=== PATIENT | female | born 1995 | race African-American/Black ===

== ENCOUNTER 2025-01-06 22:00 | Emergency (ER) | payer OTHER ==
[2025-01-06 22:15] VITALS: BP 106/52; PULSE 88; RESP 20; TEMP 98.2; BMI 19.1
[2025-01-06 22:46] LABS: HCG,QUALITATIVE URINE Positive
[2025-01-06 22:48] LABS: EPI CELLS 6 /uL (0-25.1); HYALINE CASTS 1 /uL (0-3.1); PH,URINE 7.5 (5.0-8.0); URINE APPEARANCE TURBID; URINE BACTERIA 324 /uL (0-1359); URINE BILIRUBIN NEGATIVE (NEGATIVE); URINE COLOR ORANGE; URINE GLUCOSE (UA) NEGATIVE (NEGATIVE); URINE KETONE NEGATIVE (NEGATIVE); URINE LEUK ESTERASE 3+ (NEGATIVE); URINE NITRITE NEGATIVE (NEGATIVE); URINE PROTEIN 2+ (NEGATIVE); URINE RBC 5564 /uL (0-23.9); URINE WBC 8654 /uL (0-25.8)
[2025-01-06] MEDS ORDERED: ACETAMINOPHEN 325 MG TABLET (FP) ONE (23:14)
[2025-01-06] MEDS ORDERED: CEPHALEXIN MONOHYDRATE 500 MG CAPSULE (UD) ONE (23:14)
[2025-01-06 23:19] LABS: ABSOLUTE IMMATURE GRANULOCYTES 0.05 x10^3/uL (0.0-0.031); BASOPHILS # 0.07 x10^3/uL (0.01-0.08); EOSINOPHIL % 2.3 % (0.7-5.8); EOSINOPHILS # 0.31 x10^3/uL (0.04-0.36); HEMATOCRIT 40.3 % (34.1-44.9); HEMOGLOBIN 12.8 g/dL (11.2-15.7); MCHC 31.8 g/dl (32.2-35.5); MEAN CELL VOLUME 89.2 fl (79.4-94.8); MEAN PLT VOLUME 9.8 fl (9.4-12.3); MONOCYTE # 1.53 x10^3/uL (0.24-0.86); MONOCYTE % 11.5 % (4.7-12.5); PLATELET COUNT 297 x10^3/uL (182-369); RDW 13.1 % (12.1-16.5)
[2025-01-06] MEDS: ACETAMINOPHEN 500 MG TABLET (FP) PO ONE (23:21)
[2025-01-06] MEDS: CEPHALEXIN MONOHYDRATE 500 MG CAPSULE (UD) PO ONE (23:22)
[2025-01-06 23:50] LABS: ALBUMIN 3.3 g/dl (3.4-5.0); BLOOD UREA NITROGEN 17.8 mg/dL (7-18)
[2025-01-06 23:54] LABS: CREATININE 0.8 mg/dL (0.55-1.3)
[2025-01-06 23:55] LABS: BILIRUBIN,TOTAL 0.2 mg/dL (0.2-1)
== END 2025-01-07 02:32 | disposition home or self-care (01) ==
LOC: JER 22:00
DX: O20.9 Hemorrhage in early pregnancy, unspecified (principal); O23.41 Unspecified infection of urinary tract in pregnancy, first trimester; O26.891 Other specified pregnancy related conditions, first trimester; R10.9 Unspecified abdominal pain; Z3A.00 Weeks of gestation of pregnancy not specified
CPT/HCPCS: 36415; 76817-TC; 80053; 81003; 84702; 84703; 85025; 86850; 86900; 86901; 87086; 87186; 99284-25